=== PATIENT | female | born 1990 | race Caucasian/White ===

== ENCOUNTER → 2018-07-19 | Outpatient (CLI) | payer OTHER ==
[2018-07-19 20:56] LABS: HCG, SERUM QUANTITATIVE 12845 MIU/ML
== END ==
LOC: M WUC 15:49
DX: O20.0 Threatened abortion (principal)
CPT/HCPCS: 84702

== ENCOUNTER → 2018-07-24 | Outpatient (CLI) | payer OTHER ==
[2018-07-25 06:47] LABS: HCG, SERUM QUANTITATIVE 56839 MIU/ML
== END ==
LOC: M WUC 16:24
DX: O20.0 Threatened abortion (principal)
CPT/HCPCS: 84702

== ENCOUNTER → 2018-09-13 | Outpatient (CLI) | payer OTHER ==
[2018-09-13 15:22] LABS: BASO % 0.3 % (0.0-1.0); EOS % 0.5 % (0.0-3.0); HEMATOCRIT 36.4 % (36.0-47.0); HEMOGLOBIN 12.3 g/dl (12.0-15.5); IMMATURE GRANULOCYTE % 0.3 % (0-3.0); LYMPH # 1.5 10^3/uL (1.5-6.5); LYMPH % 20.8 % (24.0-44.0); MEAN CORPUSCULAR HEMOGLOBIN 30.1 pg (27.0-33.0); MEAN CORPUSCULAR HGB CONC 33.8 g/dl (32.0-36.5); MONO # 0.4 10^3/uL (0.0-0.8); MONO % 5.3 % (0.0-5.0); NEUTROPHILS # 5.4 10^3/uL (1.8-7.7); NEUTROPHILS % 72.8 % (36.0-66.0); PLATELET COUNT, AUTOMATED 244 10^3/uL (150-450); RED BLOOD COUNT 4.09 10^6/uL (4.00-5.40); RED CELL DISTRIBUTION WIDTH 13.4 % (11.5-14.5); WHITE BLOOD COUNT 7.4 10^3/uL (4.0-10.0)
[2018-09-13 17:40] LABS: CHLAMYDIA DNA AMPLIFICATION NEGATIVE (NEGATIVE); GC DNA AMPLIFICATION NEGATIVE (NEGATIVE)
[2018-09-14 10:28] LABS: HEPATITIS C VIRUS ABY INDEX 0.1 INDEX (<0.8)
[2018-09-14 10:28] LABS: HBsAg Prenatal NEGATIVE (NEGATIVE); HIV 1&2 SCREEN CENTAUR NEGATIVE (NEGATIVE); RUBELLA IgG QUALITATIVE IMMUNE (IMMUNE)
== END ==
LOC: M SMT 08:11
DX: Z34.81 Encounter for supervision of other normal pregnancy, first trimester (principal); Z3A.09 9 weeks gestation of pregnancy
CPT/HCPCS: 86762

== ENCOUNTER → 2018-10-11 | Outpatient (REF) | payer OTHER | LOC: M LAB REF 13:49 | DX: Z36.89 Encounter for other specified antenatal screening (principal) | CPT/HCPCS: 87086 ==

== ENCOUNTER → 2018-10-17 | Outpatient (CLI) | payer OTHER ==
--- NOTE | 2018-10-17 17:15 | REP ---
Clinical: Anatomical evaluation. Comparison: None. Findings: Examination demonstrates a single live intrauterine in cephalic presentation. motion is identified by technologist. Placenta is noted the posterior and grade grade 1 without evidence for placenta previa or abruption. Amniotic fluid volume is normal. Cervix measures 3.5 cm in length and appears closed. No evidence for nuchal cord. Gestational age by LMP 18 weeks 2-day with TOY is 03/18/2019 . Gestational age by current measurements 18 weeks 1 day with TOY 03/19/2019 . FHR equals 144 beats per minute. BPD 4.1 cm 18 weeks 3 day HC 15.1 cm 18 weeks 1 day AC 12.8 cm 18 weeks 2 days FL 2.7 cm 18 weeks 2 days HL 2.7 cm 18 weeks 4 days HC/AC ratio 1.18 Estimated weight 233 grams ( 46 percentile). Anatomical assessment demonstrates normal structures including cranium, choroid plexus, cavum, cerebellum/posterior fossa, facial features, lungs, four-chamber heart/ventricular outflow tracts, diaphragm, stomach, cord insertion/three-vessel cord, kidneys/bladder, spine, and extremities. Impression: Single live intrauterine in cephalic presentation demonstrating appropriate interval growth. Anatomical assessment is complete and normal. Electronically Signed by Andrea Montes MD 10/17/2018 05:07 P
== END ==
LOC: M SMT 08:07
PROVIDERS: ATTEND Advanced Practice Midwife
DX: Z34.82 Encounter for supervision of other normal pregnancy, second trimester (principal); Z3A.18 18 weeks gestation of pregnancy

== ENCOUNTER → 2019-01-10 | Outpatient (CLI) | payer OTHER ==
[2019-01-10 13:48] LABS: BASO % 0.4 % (0.0-1.0); EOS # 0.1 10^3/uL (0.0-0.50); EOS % 0.5 % (0.0-3.0); HEMATOCRIT 31.3 % (36.0-47.0); HEMOGLOBIN 10.2 g/dl (12.0-15.5); LYMPH # 1.5 10^3/uL (1.5-6.5); MEAN CORPUSCULAR HEMOGLOBIN 29.2 pg (27.0-33.0); MEAN CORPUSCULAR HGB CONC 32.6 g/dl (32.0-36.5); MEAN CORPUSCULAR VOLUME 89.7 fl (80.0-96.0); MONO # 0.7 10^3/uL (0.0-0.8); MONO % 7.5 % (0.0-5.0); NEUTROPHILS # 7.2 10^3/uL (1.8-7.7); PLATELET COUNT, AUTOMATED 239 10^3/uL (150-450); RED BLOOD COUNT 3.49 10^6/uL (4.00-5.40); WHITE BLOOD COUNT 9.7 10^3/uL (4.0-10.0)
== END ==
LOC: M SMT 08:40
PROVIDERS: ATTEND Advanced Practice Midwife
DX: Z34.82 Encounter for supervision of other normal pregnancy, second trimester (principal); Z36.89 Encounter for other specified antenatal screening

== ENCOUNTER → 2019-02-19 | Outpatient (REF) | payer OTHER | LOC: M LAB REF 18:28 | PROVIDERS: ATTEND Advanced Practice Midwife | DX: Z34.83 Encounter for supervision of other normal pregnancy, third trimester (principal); Z3A.00 Weeks of gestation of pregnancy not specified ==

== ENCOUNTER 2019-03-16 06:21 | Inpatient (IN) | payer OTHER ==
[~2019-03-16] VITALS: Ht 160 cm; Wt 54.3 kg
[2019-03-16 06:37] VITALS: BP 96/56
[2019-03-16 07:17] LABS: HEMATOCRIT 33.1 % (36.0-47.0); HEMOGLOBIN 10.6 g/dl (12.0-15.5); MEAN CORPUSCULAR VOLUME 81.3 fl (80.0-96.0); PLATELET COUNT, AUTOMATED 223 10^3/uL (150-450); RED BLOOD COUNT 4.07 10^6/uL (4.00-5.40); WHITE BLOOD COUNT 13.3 10^3/uL (4.0-10.0)
--- NOTE | 2019-03-16 07:18 | HPE ---
DATE OF ADMISSION: 03/16/2019 Meggan is a 28-year-old, 3, para 2-0-0-2, at 39-5/7 weeks gestation, estimated date of confinement (EDC) of 03/18/2019, based on last menstrual period and confirmed by 9-week ultrasound. She presents to labor and delivery today with report of onset of uncomfortable contractions at 0530 hours with scant bloody show. Denies leakage of fluid and the fetus has been active. Her care was initiated at [facility] in the first trimester. Her course complicated by being a cystic fibrosis carrier, father of the baby has been tested and he is not a carrier, and a history of anxiety and depression. OBSTETRIC HISTORY: October 2011, 38-5/7 weeks, 6 pound 11 ounce male, vaginal delivery, uncomplicated. May 2014, 40-2/7 weeks, 7 pound 15 ounce female, vaginal delivery, uncomplicated. OBSTETRIC LABS: O+, antibody screen negative, rubella immune, VDRL nonreactive. Urine culture no growth. Hep B surface antigen negative, HIV negative, Hep C antibody nonreactive. Gonorrhea and chlamydia negative. She declined genetic serum screening labs. Gestational diabetic screening normal at 92 and her GBS is negative. PAST MEDICAL HISTORY: 1. Depression. 2. Anxiety. 3. Childhood varicella. 4. Cystic fibrosis carrier. SURGERIES: None. FAMILY HISTORY: Down syndrome. SOCIAL HISTORY: The patient is single; however, she does have a significant other who is present and supportive. She is a nonsmoker. Denies alcohol and drug use. There is no history of any sexually transmitted infections and she denies history of abuse physical, sexual and emotional. ALLERGIES: SINEMET. CURRENT MEDICATIONS: - vitamin OBJECTIVE: Temperature 98.1. pulse 74. Blood pressure is 96/56. She is alert and oriented times three. She is tense and uncomfortable with her contractions. heart rate is 135. Moderate variability, positive accelerations, no decelerations. Contractions are every 2-4 minutes. They do palpate strong. Abdomen is gravid, cephalic presentation. Estimated weight 7 pounds. Sterile vaginal exam: 6-7 cm dilated, 100% effaced, -1 station, mid position, large amount of bloody show. Membranes are intact. ASSESSMENT: Intrauterine at 39-5/7 weeks, heart rate category 1, active labor, at term. PLAN: Admit the patient to labor and delivery. Saline lock. Routine labs. Out of bed ad johnathan. Regular diet. The patient has desire to cope with her labor physiologically. I anticipate continued labor progress and a spontaneous vaginal delivery.
[2019-03-16] MEDS ORDERED: OXYTOCIN 30 UNITS IN 0.9% NaCl 500ML IV BAG (J2590) As Ordered ONE (07:30)
[2019-03-16 08:02] LABS: CORD GAS ABE V 1.5; CORD GAS HCO3 A 23.1 MEQ/L; CORD GAS HCO3 V 23.6 MEQ/L; CORD GAS O2 SAT A 65.2 %; CORD GAS PCO2 A 29.9 mmHg; CORD GAS PCO2 V 30.3 mmHg; CORD GAS PH A 7.506 UNITS; CORD GAS PH V 7.509 UNITS; CORD GAS PO2 A 22.3 mmHg; CORD GAS SBC A 24.6 MEQ/L; CORD GAS SBC V 25.2 MEQ/L; CORD GAS TCO2 V 24.5 MEQ/L
[2019-03-16] MEDS ORDERED: OXYTOCIN DRIP 30 UNITS in APPROPRIATE DILUENT 1 EA IV SCH (08:05)
[2019-03-16] MEDS ORDERED: METHYLERGONOVINE MALEATE 0.2 MG TAB PO PRN (08:15)
[2019-03-16] MEDS ORDERED: IBUPROFEN 800 MG TAB PO PRN (08:15)
[2019-03-16] MEDS ORDERED: ACETAMINOPHEN 500 MG TAB PO PRN (08:15)
[2019-03-16] MEDS ORDERED: MEASLES,MUMPS,RUBELLA VACCINE INJ (MMR-II) (90707) SC SCH (08:15)
[2019-03-16] MEDS ORDERED: RHOGAM 300 MCG (1500 IU) INJ (J2790) IM SCH (08:15)
[2019-03-16] MEDS ORDERED: DOCUSATE SODIUM 100 MG CAP PO PRN (08:15)
[2019-03-16] MEDS ORDERED: ACETAMINOPHEN TAB 650MG DOSE (2X325MG) PO PRN (08:15)
[2019-03-16] MEDS ORDERED: DIBUCAINE 1% OINTMENT 30GM TOP PRN (08:15)
[2019-03-16] MEDS ORDERED: IBUPROFEN 600 MG TAB PO PRN (08:15)
--- NOTE | 2019-03-16 08:35 | DN ---
DATE OF DELIVERY: 03/06/2019 DELIVERY NOTE: Meggan is a 28-year-old, 3, para 3-0-0-3 now, who was admitted to labor and delivery in active labor. She coped with her labor physiologically. She had spontaneous rupture of membranes for a small amount of clear fluid at 0733 hours. She reached full dilation at 0743 hours. She pushed to a normal spontaneous vaginal delivery of a live female infant in occiput anterior (OA) position with restitution to left occiput transverse (LOT) position at 0749 hours. There was a mild shoulder dystocia lasting approximately 60 seconds that was relieved with Suresh maneuver. The was placed on maternal abdomen crying and active. Mouth and nares were bulb suctioned. Cord was clamped times two and cut by the father of the baby under my direction. Cord gases and cord blood was obtained. Spontaneous expulsion of an intact placenta with three-vessel cord by Schultze mechanism was at 0752 hours. Uterine hemostasis achieved with intravenous (IV) Pitocin rapid infusion and uterine fundal massage. Estimated blood loss 300 mL. Perineum and vagina inspected and noted to be intact. [place] female weighed 3270 grams (7 pounds 3 ounces), 9/9. Mom is going to both breast and bottle feed, and the family have named her Scarlet. At the close of delivery, lap counts, needle counts and instrument counts were correct and verified.
[2019-03-16 09:50] VITALS: BP 108/54
[2019-03-16] MEDS: PRENATAL VITAMINS CHEWABLE TABLET PO SCH (09:55)
[2019-03-16 18:07] VITALS: BP 102/81
[2019-03-17 05:50] VITALS: BP 103/58
[2019-03-17] MEDS: PRENATAL VITAMINS CHEWABLE TABLET PO SCH (07:08)
[2019-03-17] MEDS ORDERED: MAPA500T2 PO (09:13)
[2019-03-17] MEDS ORDERED: PRENTAB9 PO (09:13)
[2019-03-17] MEDS ORDERED: IBUP-1114 PO (09:13)
== END 2019-03-17 12:15 | disposition home or self-care (01) | DRG 560 ==
LOC: M LDO 06:21 → M LDI 06:51 → M OBS 09:21
PROVIDERS: ADMIT Advanced Practice Midwife; ATTEND Advanced Practice Midwife
PROC: 10E0XZZ Delivery of Products of Conception, External Approach (ICD-10-PCS; principal; 2019-03-16)
DX: O66.0 Obstructed labor due to shoulder dystocia (principal); Z37.0 Single live birth; Z3A.39 39 weeks gestation of pregnancy

== ENCOUNTER → 2019-08-09 | Outpatient (CLI) | payer OTHER ==
[~2019-08-09] MED LIST: IBUP-1114 PO; MAPA500T2 PO; PRENTAB9 PO
== END ==
LOC: M SMT 09:01
PROVIDERS: ATTEND Advanced Practice Midwife
DX: Z13.79 Encounter for other screening for genetic and chromosomal anomalies (principal)

== ENCOUNTER → 2021-08-03 | Outpatient (REF) | payer BC | LOC: M SFHCWAGY 18:00 | PROVIDERS: ATTEND Advanced Practice Midwife | DX: Z12.4 Encounter for screening for malignant neoplasm of cervix (principal) ==

== ENCOUNTER → 2022-09-13 | Outpatient (CLI) | payer OTHER, MEDICAID | LOC: M WHC 12:51 | PROVIDERS: ATTEND Advanced Practice Midwife | DX: N63.20 Unspecified lump in the left breast, unspecified quadrant (principal) | CPT/HCPCS: 76642; 77066; G0279 ==

== ENCOUNTER → 2023-09-29 | Outpatient (REF) | payer OTHER, MEDICAID | LOC: M SFHCWAGY 15:45 | PROVIDERS: ATTEND Advanced Practice Midwife | DX: Z12.4 Encounter for screening for malignant neoplasm of cervix (principal) | CPT/HCPCS: 87624; G0123 ==

== ENCOUNTER → 2025-06-20 | Outpatient (CLI) | payer OTHER, MEDICAID | LOC: M PLAIMG 14:21 | PROVIDERS: ATTEND Nurse Practitioner Adult Health | DX: R42 Dizziness and giddiness (principal) ==

== ENCOUNTER → 2025-06-23 | Outpatient (CLI) | payer OTHER, MEDICAID ==
[~2025-06-23] MED LIST changes: +PROHANCE 279.3MG/ML 5ML VIAL ONE
== END ==
LOC: M PLAIMG 14:39
PROVIDERS: ATTEND Nurse Practitioner Adult Health
DX: D35.4 Benign neoplasm of pineal gland (principal); M50.10 Cervical disc disorder with radiculopathy, unspecified cervical region; R42 Dizziness and giddiness; R51.9 Headache, unspecified
CPT/HCPCS: 70553; A9576

== ENCOUNTER → 2025-06-30 | Outpatient (CLI) | payer OTHER, MEDICAID ==
[~2025-06-30] MED LIST changes: -PROHANCE 279.3MG/ML 5ML VIAL ONE
[2025-06-30 10:09] LABS: BASO # 0.1 10^3/uL (0.0-0.2); BASO % 0.9 % (0.0-1.0); EOS # 0.2 10^3/uL (0.0-0.5); EOS % 2.7 % (0.0-3.0); LYMPH # 1.9 10^3/uL (1.5-5.0); LYMPH % 34.4 % (24.0-44.0); MONO # 0.6 10^3/uL (0.0-0.8); MONO % 10.6 % (2.0-8.0); NEUTROPHILS # 2.9 10^3/uL (1.5-8.5); NEUTROPHILS % 51.0 % (36.0-66.0); PLATELET COUNT, AUTOMATED 237 10^3/uL (150-450)
[2025-06-30 10:39] LABS: IRON (FE) 83 UG/DL (50-170); PERCENT SATURATION 25.9 % (13.2-45.0)
[2025-06-30 10:40] LABS: ALT/SGPT 12 U/L (7.0-40); AST/SGOT 13 U/L (<34); CALCIUM LEVEL 9.3 MG/DL (8.5-10.1); CARBON DIOXIDE LEVEL 26 MMOL/L (20-31); CHLORIDE LEVEL 107 MMOL/L (98-107); CHOLESTEROL LEVEL 153 MG/DL (<200); CHOLESTEROL RISK RATIO 1.96 (<5); CREATININE FOR GFR 0.78 MG/DL (0.55-1.30); GLOMERULAR FILTRATION RATE > 90.0 (>60); LDL CHOLESTEROL 66.2 MG/DL (<100); NON-HDL-C 75.0 MG/DL; POTASSIUM SERUM 4.3 MMOL/L (3.5-5.1); SODIUM LEVEL 142 MMOL/L (136-145); TRIGLYCERIDES LEVEL 44 MG/DL (<150)
[2025-06-30 10:41] LABS: FREE T4 1.40 NG/DL (0.89-1.76)
== END ==
LOC: M LAB 09:03
PROVIDERS: ATTEND Nurse Practitioner Adult Health
DX: Z13.220 Encounter for screening for lipoid disorders (principal); Z13.0 Encounter for screening for diseases of the blood and blood-forming organs and certain disorders involving the immune mechanism; Z13.29 Encounter for screening for other suspected endocrine disorder

== ENCOUNTER → 2025-10-01 | Outpatient (CLI) | payer OTHER, MEDICAID | LOC: M PLAIMG 07:06 | PROVIDERS: ATTEND Nurse Practitioner Adult Health | DX: M50.10 Cervical disc disorder with radiculopathy, unspecified cervical region (principal); R51.9 Headache, unspecified; R42 Dizziness and giddiness; D35.4 Benign neoplasm of pineal gland ==